=== PATIENT | female | born 1945 | race Caucasian/White ===

== ENCOUNTER 2023-02-19 14:16 | Emergency (ER) | payer OTHER ==
[2023-02-19] MEDS ORDERED: Ketorolac Tromethamine 30 MG/ML VIAL ONE (15:37)
[2023-02-19] MEDS ORDERED: Morphine 4 MG/ML VIAL ONE (16:44)
== END 2023-02-19 17:02 | disposition home or self-care (01) ==
LOC: MADERS 14:16
DX: S42.292A Other displaced fracture of upper end of left humerus, initial encounter for closed fracture (principal); E78.00 Pure hypercholesterolemia, unspecified; E66.9 Obesity, unspecified; W19.XXXA Unspecified fall, initial encounter; Y92.512 Supermarket, store or market as the place of occurrence of the external cause
CPT/HCPCS: 96372; J1885; J2270